=== PATIENT | female | born 1995 | race Caucasian/White ===

== ENCOUNTER 2017-05-28 13:08 | Outpatient (CLI) | payer OTHER, MEDICAID ==
[~2017-05-28 13:08] MED LIST: CEPH500C5 PO; LEVO75TA7 PO; LUBI24CA5 PO; MERC50TA2 PO; ONDA8TAB9 PO; PNV1TABL75 PO; REM100I IV
== END 2017-05-28 23:59 | disposition home or self-care (01) ==
LOC: RAD 13:08
PROVIDERS: ATTEND Family Medicine
DX: J40 Bronchitis, not specified as acute or chronic (principal); R06.02 Shortness of breath
CPT/HCPCS: 71046

== ENCOUNTER 2017-05-29 14:37 | Outpatient (CLI) | payer OTHER, MEDICAID | END 2017-05-29 23:59 | disposition home or self-care (01) | LOC: RAD 14:37 | PROVIDERS: ATTEND Family Medicine | DX: M51.34 Other intervertebral disc degeneration, thoracic region (principal); M54.2 Cervicalgia | CPT/HCPCS: 72141; 72146; 72148 ==

== ENCOUNTER 2018-08-06 13:03 | Outpatient (CLI) | payer MEDICAID ==
[~2018-08-06 13:03] MED LIST changes: -CEPH500C5 PO; +ONDA4TAB12 PO
== END 2018-08-06 23:59 | disposition home or self-care (01) ==
LOC: LAB 13:03
PROVIDERS: ATTEND Obstetrics & Gynecology
DX: R10.2 Pelvic and perineal pain (principal); R23.2 Flushing; R30.0 Dysuria; Z88.8 Allergy status to other drugs, medicaments and biological substances
CPT/HCPCS: 36415; 82670; 82679; 83001; 83002; 84144; 84146; 84439; 84443

== ENCOUNTER 2018-10-24 10:47 | Day surgery (SDC) | payer MEDICAID ==
[2018-10-15 12:01] LABS: BASOPHILS # (AUTO) 0.1 X10'3 (0-0.2); EOSINOPHILS % (AUTO) 0.5 % (0-6); LYMPHOCYTES # (AUTO) 3.3 X10'3 (1.1-4.8); MEAN CORPUSCULAR HEMOGLOBIN 29.4 PG (27.0-31.0); MEAN CORPUSCULAR HGB CONC 33.9 g/dL (33.0-36.5); MEAN CORPUSCULAR VOLUME 86.8 FL (78-98); MEAN PLATELET VOLUME 8.9 FL (7.4-10.4); MONOCYTES # (AUTO) 0.8 X10'3 (0-0.9); MONOCYTES % (AUTO) 9.6 % (2-12); NEUTROPHILS # (AUTO) 3.9 X10'3 (1.8-7.7); NEUTROPHILS % (AUTO) 47.9 % (42-75); PRE OP HEMATOCRIT 35.7 % (35.0-45.0); PRE OP HEMOGLOBIN 12.1 g/dL (12.0-16.0); PRE OP PLATELET COUNT 239 X10'3 (140-440); RED BLOOD COUNT 4.11 X10'6 (4.20-5.60); RED CELL DISTRIBUTION WIDTH 12.8 % (11.5-14.5)
[2018-10-15 12:03] LABS: CLARITY,URINE CLEAR (Clear); COLOR,URINE STRAW (Yellow); GLUCOSE, URINE NEGATIVE (Neg); KETONES,URINE NEGATIVE (Neg); LEUKOCYTE ESTERASE ,URINE NEGATIVE (Neg); NITRITES, URINE NEGATIVE (Neg); OCCULT BLOOD,URINE NEGATIVE (Neg); PH,URINE 6.5 (4.8-8.0); PROTEIN,URINE NEGATIVE (Neg); UA COLLECTION TYPE NON-SPECIFIED; UROBILINOGEN,URINE 0.2 E.U/dL (0.2-1.0)
[2018-10-15 12:14] LABS: PARTIAL THROMBOPLASTIN TIME 26 SECONDS (22-32)
[2018-10-15 12:17] LABS: ALBUMIN 3.8 G/DL (3.4-5.0); ALBUMIN/GLOBULIN RATIO 1.1 (1.1-1.5); ALKALINE PHOSPHATASE 36 IU/L (46-116); BLOOD UREA NITROGEN 9 MG/DL (7-18); BUN/CREATININE RATIO 11.8 (6.6-38.0); CALCIUM 8.8 MG/DL (8.5-10.1); CHLORIDE 102 MMOL/L (99-107); CREATININE 0.76 MG/DL (0.40-0.90); PRE OP ALT 22 U/L (30-65); PRE OP ANION GAP 8 (8-16); PRE OP AST 19 U/L (10-37); PRE OP BILIRUB, TOTAL 0.6 MG/DL (0.0-1.0); PRE OP GLUCOSE 85 MG/DL (70-104); PRE OP POTASSIUM 3.4 MMOL/L (3.4-5.1); PRE OP SODIUM 136 MMOL/L (135-145); TOTAL CARBON DIOXIDE 25.8 MMOL/L (24-32); TOTAL PROTEIN 7.4 G/DL (6.4-8.2); eGFR > 90 ML/MIN
[2018-10-15 12:31] LABS: HCG SERUM QL NEGATIVE
[~2018-10-24] VITALS: Ht 172.7 cm; Wt 68.3 kg
[2018-10-24] VITALS (15 sets, daily range): BP systolic 136–151; BP diastolic 79–96
[~2018-10-24 10:47] MED LIST changes: +AZAT50TA18 PO; +DESO1TAB4 PO; +DULO-31 PO; -LUBI24CA5 PO; -MERC50TA2 PO; +MULT1TAB74 PO; -ONDA4TAB12 PO; -ONDA8TAB9 PO; -PNV1TABL75 PO; +ceFOXitin 2 GM ADDvantage bag 100 ML IV ONE; +ceFOXitin sod/dextrose 2g/50ml 50 ML IV ONE; +cefotetan inj 1 GM in normal saline 50ml IV soln 50 ML IV SCH; +famotidine 20mg tablet PO ONE; +ringers solution, lacted 1,000 ML IV SCH; +tranexamic acid inj. 1,000 MG in normal saline 100 ML IV ONE
[2018-10-24] MEDS ORDERED: INDOCYANINE GREEN 25 MG VIAL IV ONE (13:12)
[2018-10-24] MEDS ORDERED: scopolamine 1.5mg patch.TD72 TD ONE ×2 (13:21)
[2018-10-24] MEDS ORDERED: fentaNYL/PF 50MCG/1 ML 2ML syringe ONE ×2 (13:35→14:30)
[2018-10-24] MEDS ORDERED: midazolam 2 mg/2 ml injection ONE (13:35)
[2018-10-24] MEDS ORDERED: BUPIVAcaine/PF 2.5 mg/ml (0.25%) 30ml vial ONE (13:58)
[2018-10-24] MEDS ORDERED: ringers solution, lacted 1,000 ML IV SCH (14:41)
[2018-10-24] MEDS ORDERED: propofol inj 20 ML IV ONE (14:44)
[2018-10-24] MEDS ORDERED: neostigmine methylsulfate 1 MG/ML 10ml vial ONE (14:44)
[2018-10-24] MEDS ORDERED: dexamethasone sod phosphate 4mg/ml inj. ONE (14:44)
[2018-10-24] MEDS ORDERED: ondansetron/PF 4mg/2ml inj ONE (14:44)
[2018-10-24] MEDS ORDERED: rocuronium 10mg/ml inj IV ONE (14:44)
[2018-10-24] MEDS ORDERED: glycopyrrolate 0.2mg/ml inj ONE (14:44)
[2018-10-24] MEDS ORDERED: LIDOcaine 2% (20mg/ml) 5ml vial ONE (14:44)
[2018-10-24] MEDS ORDERED: morphine 4 MG/ML inj SYRINge IV PRN (14:45)
[2018-10-24] MEDS ORDERED: ondansetron/PF 4mg/2ml inj IV PRN (14:45)
[2018-10-24] MEDS ORDERED: meperidine/PF 25mg/ml syringe IV PRN ×2 (14:45)
[2018-10-24] MEDS ORDERED: proCHLORperazine 10 MG/2 ml inj IV PRN (14:45)
--- NOTE | 2018-10-24 15:04 | NUR ---
Received from OR via [facility], accompanied by Anesthesiologist DR WORTHINGTON and report given by Anesthesiologist. PT VERY DROWSY, NO S/S OF DISTRESS/DISCOMFORT, 4 ABDOMINAL LAP SITES W/BANDAIDS CDI, CHIDI PAD IN PLACE, SCANT AMT OF S/S DRAINAGE. Addendum: 10/24/18 at 1517 by Martha Rodriguez RN Amended: Links added.
[2018-10-24] MEDS: meperidine/PF 25mg/ml syringe IV PRN ×2 (15:20→15:44)
[2018-10-24] MEDS: morphine 4 MG/ML inj SYRINge IV PRN ×2 (16:00→16:12)
[2018-10-24] MEDS ORDERED: acetaminophen 1,000mg/100ml IV 100 ML IV ONE (16:15)
[2018-10-24] MEDS ORDERED: HYDROcodone/acetaminophen 10/325mg tab PO ONE (16:15)
== END 2018-10-24 17:04 | disposition home or self-care (01) ==
LOC: PAS 10:47
PROVIDERS: ATTEND Obstetrics & Gynecology
DX: N80.3 Endometriosis of pelvic peritoneum (principal); F41.9 Anxiety disorder, unspecified; Z79.899 Other long term (current) drug therapy; Z98.890 Other specified postprocedural states
CPT/HCPCS: 36415; 58662; 80053; 81003; 84703; 85025; 85610; 85730; 93005; A6255; C1758; J0131; J0694; J1100; J2001; J2175; J2250; J2270; J2405; J2704; J2710; J3010; J3490; A7000; J7030; J7040; J7120